=== PATIENT | female | born 1985 | race Caucasian/White ===

== ENCOUNTER 2019-05-25 10:41 | Inpatient (IN) | payer BC ==
[2019-05-25] MEDS ORDERED: Lidocaine 1% (PF) 30 ML VIAL ONE ×2 (10:56→17:59)
[2019-05-25] MEDS: Lactated Ringer's 1,000 ML IV SCH ×2 (11:11→13:45)
[2019-05-25] MEDS ORDERED: NS w/ Oxytocin 10 units 500 ML ONE (11:25)
[2019-05-25] MEDS ORDERED: hydrALAZINE 20 MG/ML VIAL SLOW IVP PRN ×2 (11:39→18:53)
[2019-05-25] MEDS ORDERED: Ibuprofen 800 MG TAB PO PRN (11:39)
[2019-05-25] MEDS ORDERED: Promethazine HCl 25 MG/ML VIAL IM PRN ×2 (11:39→13:24)
[2019-05-25] MEDS ORDERED: NS / Oxytocin 40 units/1000ml 1,000 ML IV PRN (11:39)
[2019-05-25] MEDS ORDERED: Misoprostol 200 MCG TAB PR PRN (11:39)
[2019-05-25] MEDS ORDERED: Zolpidem Tartrate 5 MG TAB PO PRN ×2 (11:39→18:53)
[2019-05-25] MEDS ORDERED: HYDROcodone/Acetaminophen 5/325 mg Tablet PO PRN ×2 (11:39)
[2019-05-25] MEDS ORDERED: Ondansetron PF 4 MG/2 ML Vial IVP PRN ×3 (11:39→18:53)
[2019-05-25] MEDS ORDERED: Acetaminophen 500 MG TAB PO PRN (11:39)
[2019-05-25] MEDS ORDERED: Lidocaine 1% (PF) 30 ML VIAL SC PRN (11:39)
[2019-05-25] MEDS ORDERED: Diphenoxylate HCl/Atropine Tablet PO PRN ×2 (11:39)
[2019-05-25] MEDS ORDERED: Docusate 100 MG CAP PO PRN (11:39)
[2019-05-25] MEDS ORDERED: Butorphanol Tartrate 1 MG/ML VIAL SLOW IVP PRN (11:39)
[2019-05-25] MEDS ORDERED: NS w/ Oxytocin 10 units 500 ML IV SCH ×2 (11:45)
[2019-05-25 11:49] LABS: Hemoglobin 11.8 g/dL (12.0-16.0); Mean Corpuscular HGB CONC 34.4 g/dL (32.0-36.0); Mean Corpuscular Hemoglobin 28.7 pg (27.0-31.0); Mean Corpuscular Volume 83.3 fL (78.0-98.0); Mean Platelet Volume 9.7 fL (7.4-10.4); Platelet Count 187 thou/uL (130-400); RBC Distribution Width 11.7 % (11.5-14.5); Red Blood Cell (RBC) Count 4.13 mill/uL (4.20-5.40); White Blood Cell (WBC) Count 9.3 thou/uL (4.8-10.8)
[2019-05-25 11:53] VITALS: BMI 37.8
[2019-05-25] MEDS ORDERED: Fentanyl 4 mcg/Bup 0.1% Cadd 100 ML ONE (12:13)
[2019-05-25 12:30] LABS: HBSAg Index 0.15 S/CO (0-0.99); Hep B Surf Ag Non-Reactive S/CO (NonReactive)
[2019-05-25] MEDS ORDERED: Acetaminophen 325 MG TAB PO PRN (13:24)
[2019-05-25] MEDS ORDERED: Lactated Ringer's 500 ML IV PRN (13:24)
[2019-05-25] MEDS ORDERED: diphenhydrAMINE 50 MG/ML VIAL IVP PRN (13:24)
[2019-05-25] MEDS ORDERED: ePHEDrine/0.9% NaCl/PF SYRINGE 50 mg/10 ml SLOW IVP PRN (13:24)
[2019-05-25] MEDS ORDERED: Naloxone HCl 0.4 mg/ml Vial IVP PRN ×2 (13:24)
[2019-05-25] MEDS ORDERED: Fentanyl 4 mcg/Bupivacaine 0.1% Cassette 100 ML EPIDURAL SCH (13:30)
[2019-05-25] MEDS ORDERED: Communication Order-Pharmacy FS SCH (13:30)
[2019-05-25] MEDS ORDERED: Bupivacaine/Epinephrine 0.25% 30 ML VIAL ONE (15:00)
[2019-05-25 15:03] LABS: Syphilis Antibody Nonreactive (Nonreactive); Syphilis Antibody Index 0.03 S/CO (<1.00 Non-Reactive)
[2019-05-25] MEDS ORDERED: Misoprostol 200 MCG TAB ONE (17:59)
[2019-05-25] MEDS ORDERED: NS / Oxytocin 40 units/1000ml 1,000 ML ONE ×2 (17:59→18:00)
[2019-05-25] MEDS ORDERED: Methylergonovine 0.2 MG/ML VIAL ONE (18:00)
[2019-05-25] MEDS ORDERED: Carboprost 250 MCG/ML AMP ONE (18:00)
[2019-05-25] MEDS ORDERED: Lanolin Ointment 7 GM TUBE TOP PRN (18:53)
[2019-05-25] MEDS ORDERED: diphenhydrAMINE 25 MG CAP PO PRN (18:53)
[2019-05-25] MEDS ORDERED: Benzocaine-Menthol 82.5 ML CAN TOP PRN (18:53)
[2019-05-25] MEDS ORDERED: Bisacodyl 10 MG SUPP PR PRN (18:53)
[2019-05-25] MEDS ORDERED: Acetaminophen/Codeine 30-300mg Tablet PO PRN ×2 (18:53)
[2019-05-25] MEDS ORDERED: Misoprostol 200 MCG TAB VAG PRN (18:53)
[2019-05-25] MEDS ORDERED: Preparation H Ointment 28 GM TUBE PR PRN (18:53)
[2019-05-25] MEDS ORDERED: Milk Of Magnesia 30 ML UDCUP PO PRN (18:53)
[2019-05-25] MEDS ORDERED: NS / Oxytocin 40 units/1000ml 1,000 ML IV SCH (19:00)
[2019-05-26] MEDS: Ibuprofen 800 MG TAB PO SCH ×3 (06:50→15:15)
[2019-05-26] MEDS ORDERED: Sodium Chloride 0.9% 10 ML ONE (07:59)
[2019-05-26] MEDS: Docusate Calcium (SURFAK) 240 MG CAP PO SCH ×2 (08:00→11:55)
[2019-05-26] MEDS: Prenatal Vitamin 1 TAB PO SCH ×2 (08:00→11:57)
[2019-05-26] MEDS ORDERED: Adacel (T-DAP) 0.5 ML SYRINGE IM ONE (09:00)
[2019-05-26] MEDS: Ferrous Sulfate 325 MG TAB PO SCH ×2 (11:57→16:40)
[2019-05-26 18:01] VITALS: BP 119/65; TEMP 98.3
== END 2019-05-26 21:42 | disposition home or self-care (01) | DRG 807 ==
LOC: L&D 10:41 → 3SW 22:51
PROVIDERS: ADMIT Obstetrics & Gynecology; ATTEND Obstetrics & Gynecology
PROC: 10E0XZZ Delivery of Products of Conception, External Approach (ICD-10-PCS; principal; 2019-05-25)
PROC: 10907ZC Drainage of Amniotic Fluid, Therapeutic from Products of Conception, Via Natural or Artificial Opening (ICD-10-PCS; 2019-05-25)
PROC: 3E033VJ Introduction of Other Hormone into Peripheral Vein, Percutaneous Approach (ICD-10-PCS; 2019-05-25)
DX: O41.03X0 Oligohydramnios, third trimester, not applicable or unspecified (principal); Z37.0 Single live birth; O69.1XX0 Labor and delivery complicated by cord around neck, with compression, not applicable or unspecified; Z3A.37 37 weeks gestation of pregnancy; O43.893 Other placental disorders, third trimester
CPT/HCPCS: 36415; 85027; 85461; 86780; 86850; 86870; 86900; 86901; 87340; 90384; 96372; J2001; J2210; J2590; J3490